=== PATIENT | female | born 1995 | race Caucasian/White ===

== ENCOUNTER 2017-12-06 14:21 | Emergency (ER) | payer SELFPAY ==
[2017-12-06] MEDS ORDERED: Haloperidol Lactate 5 mg/mL 1mL Vial IM PRN (14:29)
[2017-12-06] MEDS ORDERED: Haloperidol Lactate 5 mg/mL 1mL Vial ONE (14:31)
--- NOTE | 2017-12-06 14:46 | ED Physician Chart ---
ED Chief Complaint/HPI - Patient Information Date Seen:: 12/06/17 Time Seen:: 14:25 Chief Complaint:: combative behavior History of Present Illness:: The police were notified that the patient was causing a disturbance. 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 Accu-Chek in the field was 203. Historian:: Patient, EMS, Other ( police) ED Review of Systems - Review of Systems General/Constitutional: No fever, No chills, No weight loss, No weakness, No diaphoresis, No edema, No loss of appetite Skin: No skin lesions, No rash, No bruising Head: No headache, No light-headedness Eyes: No loss of vision, No pain, No diplopia ENT: No earache, No nasal drainage, No sore throat, No tinnitus Neck: No neck pain, No swelling, No thyromegaly, No stiffness, No mass noted Cardio Vascular: No chest pain, No palpitations, No PND, No orthopnea, No edema Pulmonary: No SOB, No cough, No sputum, No wheezing GI: No nausea, No vomiting, No diarrhea, No pain, No melena, No hematochezia, No constipation, No hematemesis G/U: No dysuria, No frequency, No hematuria Musculoskeletal: No bone or joint pain, No back pain, No muscle pain Endocrine: No polyuria, No polydipsia Psychiatric: No anxiety, No suicidal ideation, Other (extreme agitation) Hematopoietic: No bruising, No lymphadenopathy Allergic/Immuno: No urticaria, No angioedema Neurological: No syncope, No focal symptoms, No weakness, No paresthesia, No headache, No seizure, No dizziness, No confusion, No vertigo ED Past Medical History - Past Medical History Past Medical History: Other (unknown) Family History: Other (unknown) Social History: Other (unknown) Surgical History: other (unknown) Psychiatricy History: Other (unknown) Family Medical History - Family Member Mother History Unknown: Yes Ethnicity: Non- Living Status: Unknown ED Physical Exam - Physical Examination General/Constitutional: Awake, Well-developed, well-nourished, Alert Other Gen/Cons comments:: Patient yelling; uses extreme profanity especially F word; refuses physical exam Head: Atraumatic Eyes: Lids, conjuctiva normal, PERRL Other Eyes comments:: Pupils about 2 mm Skin: Nl inspection, No rash ENMT: External ears, nose nl Neck: No mass Other Neck comments:: Patient was her neck freely Respiratory: Nl effort/Exclusion, Clear to Auscultation Cardio Vascular: RRR, No murmur, gallop, rubs, NL S1 S2 GI: No tenderness/rebounding/guarding, No organomegaly, No hernia Extremities: Normal digits & nails Neuro/Psych: No focal deficits Misc: Normal back ED Labs/Radiology/EKG Results - Lab Results Results: Laboratory Results - last 24 hr 12/06/17 12/06/17 15:05 15:05 WBC 12.0 H RBC 4.31 Hgb 11.8 L Hct 35.1 L MCV 81.4 MCH 27.5 MCHC Differential 33.8 RDW 17.7 Plt Count 327 MPV 7.7 Neutrophils % 77.7 Lymphocytes % 13.9 L Monocytes % 8.1 Eosinophils % 0.3 Basophils % 0.0 Sodium 139 Potassium 3.1 L Chloride 105 Carbon Dioxide 23.5 Anion Gap 13.6 BUN 20 Creatinine 1.1 Est GFR ( Amer) > 60.0 Est GFR (Non-Af Amer) > 60.0 BUN/Creatinine Ratio 18.2 Glucose 120 H Calcium 9.5 Creatine Kinase 290 H CK-MB (CK-2) 4.3 Salicylates < 25.0 L Acetaminophen < 10.0 L Ethyl Alcohol < 10 Laboratory Results - last 24 hr 12/06/17 12/06/17 12/06/17 15:05 15:05 18:05 WBC 12.0 H RBC 4.31 Hgb 11.8 L Hct 35.1 L MCV 81.4 MCH 27.5 MCHC Differential 33.8 RDW 17.7 Plt Count 327 MPV 7.7 Neutrophils % 77.7 Lymphocytes % 13.9 L Monocytes % 8.1 Eosinophils % 0.3 Basophils % 0.0 Sodium 139 Potassium 3.1 L Chloride 105 Carbon Dioxide 23.5 Anion Gap 13.6 BUN 20 Creatinine 1.1 Est GFR ( Amer) > 60.0 Est GFR (Non-Af Amer) > 60.0 BUN/Creatinine Ratio 18.2 Glucose 120 H Calcium 9.5 Creatine Kinase 290 H CK-MB (CK-2) 4.3 Urine Source CATH Urine Color YELLOW Urine Clarity CLEAR Urine pH 5.5 Ur Specific [place] >= 1.030 Urine Protein TRACE Urine Glucose (UA) NEGATIVE Urine Ketones NEGATIVE Urine Blood NEGATIVE Urine Nitrate NEGATIVE Urine Bilirubin NEGATIVE Urine Urobilinogen 1.0 Ur Leukocyte Esterase NEGATIVE Urine RBC 0-2 Urine WBC 2-5 Ur Epithelial Cells OCCASIONAL Urine Bacteria NONE SEEN Urine Test Salicylates < 25.0 L Urine Opiates Screen Urine Methadone Screen Acetaminophen < 10.0 L Ur Barbiturates Screen Ur Tricyclics Screen Ur Phencyclidine Scrn Amphetamines Screen U Methamphetamines Scrn U Benzodiazepines Scrn U Cocaine Metab Screen U Cannabinoids Screen Ethyl Alcohol < 10 12/06/17 12/06/17 18:05 18:05 WBC RBC Hgb Hct MCV MCH MCHC Differential RDW Plt Count MPV Neutrophils % Lymphocytes % Monocytes % Eosinophils % Basophils % Sodium Potassium Chloride Carbon Dioxide Anion Gap BUN Creatinine Est GFR ( Amer) Est GFR (Non-Af Amer) BUN/Creatinine Ratio Glucose Calcium Creatine Kinase CK-MB (CK-2) Urine Source Urine Color Urine Clarity Urine pH Ur Specific [place] Urine Protein Urine Glucose (UA) Urine Ketones Urine Blood Urine Nitrate Urine Bilirubin Urine Urobilinogen Ur Leukocyte Esterase Urine RBC Urine WBC Ur Epithelial Cells Urine Bacteria Urine Test NEGATIVE Salicylates Urine Opiates Screen POSITIVE H Urine Methadone Screen NEGATIVE Acetaminophen Ur Barbiturates Screen NEGATIVE Ur Tricyclics Screen NEGATIVE Ur Phencyclidine Scrn NEGATIVE Amphetamines Screen POSITIVE H U Methamphetamines Scrn NEGATIVE U Benzodiazepines Scrn NEGATIVE U Cocaine Metab Screen NEGATIVE U Cannabinoids Screen NEGATIVE Ethyl Alcohol ED Reassessment (Disposition) - Reassessment Reassessment Condition:: Unchanged - Diagnosis Diagnosis:: Aggressive behavior; illicit drug use (amphetamines and opiates); medically stable
[2017-12-06] MEDS ORDERED: Sodium Chloride 0.9% 2,000 ML IV ONE (15:02)
[2017-12-06 15:12] LABS: % EOSINOPHILS 0.3 % (0.0-5.0); % LYMPHOCYTES 13.9 % (20.0-50.0); % MONOCYTES 8.1 % (2.0-10.0); % NEUTROPHILS 77.7 % (40.0-80.0); HEMATOCRIT 35.1 % (41.0-60); HEMOGLOBIN 11.8 gm/dL (12-16); LYMPHOCYTE ABSOLUTE 1.7 Th/cmm (1.5-3.0); MEAN CELL VOLUME 81.4 fl (81-100); MEAN CORPUSCULAR HEMOGLOBIN 27.5 pg (27.0-31.0); MEAN CORPUSCULAR HGB CONC 33.8 pg (28.0-36.0); MEAN PLATELET VOLUME 7.7 fl; NEUTROPHILE ABSOLUTE 9.3 Th/cmm (1.8-8.0); PLATELET COUNT 327 Th/cmm (150-400); RED BLOOD COUNT 4.31 Mil/cmm (3.80-5.10); RED CELL DISTRIBUTION WIDTH 17.7 % (11.5-20.0)
[2017-12-06 15:29] LABS: ANION GAP 13.6 (7.0-16.0); BUN - UREA NITROGEN 20 mg/dL (7-25); CALCIUM SERUM 9.5 mg/dL (8.6-10.3); CARBON DIOXIDE 23.5 mEq/L (21.0-31.0); CHLORIDE 105 mEq/L (98-107); CREATININE - SERUM 1.1 mg/dL (0.6-1.2); CREATININE KINASE 290 U/L (30-223); GFR AFRICAN-AMERICAN > 60.0 ml/min (>90); GFR NON AFRICAN-AMERICAN > 60.0 ml/min; GLUCOSE 120 mg/dL (70-105); POTASSIUM SERUM 3.1 mEq/L (3.5-5.1); SODIUM SERUM 139 mEq/L (136-145)
[2017-12-06 15:54] LABS: ACETAMINOPHEN < 10.0 ug/mL (10.0-30.0); SALICYLATES (ASPIRIN) < 25.0 mg/L (30.0-100.0)
[2017-12-06] MEDS ORDERED: Potassium Chloride 20 mEq ER Tab PO ONE (16:42)
[2017-12-06 18:18] LABS: URINE BILIRUBIN NEGATIVE (NEGATIVE); URINE BLOOD NEGATIVE (NEGATIVE); URINE GLUCOSE (UA) NEGATIVE (NEGATIVE); URINE KETONE NEGATIVE (NEGATIVE); URINE LEUKOCYTE ESTERASE NEGATIVE (NEGATIVE); URINE MICROSCOPIC INDICATED? YES; URINE NITRATE NEGATIVE (NEGATIVE); URINE PH 5.5 (4.6 - 8.0); URINE PROTEIN TRACE mg/dL (NEGATIVE); URINE SOURCE CATH
[2017-12-06 18:27] LABS: URINE BACTERIA NONE SEEN /hpf (NONE SEEN); URINE CLARITY CLEAR (CLEAR); URINE COLOR YELLOW; URINE EPITHELIAL CELLS OCCASIONAL /lpf (FEW); URINE RBC 0-2 /hpf (0-5)
[2017-12-06 18:32] LABS: AMPHETAMINE URINE POSITIVE (NEGATIVE); BARBITURATES URINE NEGATIVE (NEGATIVE); BENZODIAZEPINES QUAL URINE NEGATIVE (NEGATIVE); CANNABINOID THC NEGATIVE (NEGATIVE); COCAINE METABOLITE QUAL URINE NEGATIVE (NEGATIVE); METHADONE URINE NEGATIVE (NEGATIVE); METHAMPHETAMINES QUAL URINE NEGATIVE (NEGATIVE); OPIATES (MORPHINE) QUAL. URINE POSITIVE (NEGATIVE); PHENCYCLIDINE (PCP) URINE NEGATIVE (NEGATIVE); TRICYCLICS (TCA) QUAL. URINE NEGATIVE (NEGATIVE)
[2017-12-07] MEDS ORDERED: Potassium Chloride 20 mEq ER Tab PO ONE (11:00)
--- NOTE | 2017-12-08 01:24 | Progress Notes ---
DATE: 12/06/2017 HISTORY OF PRESENT ILLNESS: A 22-year-old female coming in on a hold, not a very good historian, states she really has no idea why she is in the hospital. The patient apparently assaulted the police, aggressive towards police, attacking the police. The patient has no clear explanation as to why this happened, "I don't know." The patient states that she has a cell phone, trying to get numbers out of cell phones but as of yet have no collaterals. She denies all symptoms. Denies depression, denies anxiety. Denies poor sleep. Denies poor appetite. Denies hopeless thoughts. PAST PSYCHIATRIC HISTORY: Denies any history of psychiatric hospitalizations. MEDICATIONS: She denies. SOCIAL HISTORY: The patient states that she lives locally. Denies being . Denies any drug use. MEDICAL: The patient has been medically cleared. MENTAL STATUS EXAMINATION: Disheveled, unkempt, wearing lot of heavy jewellery, lot of metal type of jewellery on her fingers and wrists, around her neck as well. Speech decreased content. Mood "okay." Affect flat. Thought processes were mildly disoriented. No overt SI or HI, but she was quite aggressive toward the police. No overt psychotic symptoms. Insight and judgment questionable. Impulse control, highly questionable. PROVISIONAL DIAGNOSIS: Psychosis, unspecified, rule out substance-induced psychosis. MEDICAL: Please see full H and P. RECOMMENDATIONS AND PLAN: Continue 5150 hold. The patient is not a good historian. I do have ongoing concerns about safety given how aggressive she was towards the police. She is denying any drug use, so I am concern that it may be an underlying psychiatric disorder. JOB# [id number]
[2017-12-08] MEDS ORDERED: Haloperidol Lactate 5 mg/mL 1mL Vial IM ONE (07:30)
== END 2017-12-08 16:40 | disposition home or self-care (01) ==
LOC: ER 14:21
DX: R45.6 Violent behavior (principal); F15.90 Other stimulant use, unspecified, uncomplicated
CPT/HCPCS: 99284; 96372 ×4; 36415; 80307; 85025; 81001; 80329 ×2; 80320; 82550; 82553; 81025; 80048; J2060; J1200; J1630; Z7502; Z7610